=== PATIENT | male | born 1980 | race Hispanic/Latino ===

== ENCOUNTER 2018-09-15 08:33 | Emergency (ER) | payer SELFPAY ==
[~2018-09-15] VITALS: Ht 182.9 cm; Wt 111.1 kg
[2018-09-15] MEDS ORDERED: DIAZEPAM 5 MG TAB PO ONE (09:00)
[2018-09-15] MEDS ORDERED: HYDROCODONE/APAP 5MG-325MG TAB PO ONE (09:00)
[2018-09-15] MEDS ORDERED: KETOROLAC TROMETHAMINE 60 MG/2 ML VIAL IM ONE (09:00)
[2018-09-15 09:45] VITALS: BP 134/93
== END 2018-09-15 09:52 | disposition home or self-care (01) ==
LOC: ER 08:33
DX: M54.5 Low back pain (principal); S39.012A Strain of muscle, fascia and tendon of lower back, initial encounter; X50.1XXA Overexertion from prolonged static or awkward postures, initial encounter
CPT/HCPCS: 99283; J1885

== ENCOUNTER 2019-07-12 12:11 | Emergency (ER) | payer SELFPAY ==
[~2019-07-12] VITALS: Ht 182.9 cm; Wt 111.1 kg
[2019-07-12] MEDS ORDERED: ORPHENADRINE CITRATE 30 MG/ML VIAL IM ONE (13:00)
[2019-07-12] MEDS ORDERED: PREDNISONE 20 MG TAB PO ONE (13:30)
[2019-07-12] MEDS ORDERED: HYDROCODONE/APAP 10MG-325MG TAB PO ONE (13:30)
== END 2019-07-12 14:27 | disposition home or self-care (01) ==
LOC: ER 12:11
DX: M54.32 Sciatica, left side (principal)
CPT/HCPCS: 99282; J2360; J7512

== ENCOUNTER 2020-12-26 17:07 | Inpatient (IN) | payer SELFPAY ==
[~2020-12-26] VITALS: Ht 185.4 cm; Wt 108.4 kg
[2020-12-26 18:19] LABS: BASOPHILS # (AUTO) 0.1 (0.0-0.1); BASOPHILS % 0.3 % (0.0-1.0); EOSINOPHILS % 0.3 % (0.0-6.0); HEMATOCRIT 40.6 % (38.2-49.6); LYMPHOCYTES # (AUTO) 2.3 (1.0-3.2); LYMPHOCYTES % 14.5 % (18.0-39.1); MEAN CORPUSCULAR HEMOGLOBIN 29.7 pg (28-32); MEAN CORPUSCULAR VOLUME 92.7 fL (81-99); MONOCYTES # (AUTO) 0.6 (0.2-0.8); NEUTROPHILS # (AUTO) 12.5 (2.1-6.9); NEUTROPHILS % 80.3 % (38.7-80.0); PLATELET COUNT 260 x10e3/uL (140-360); RED BLOOD COUNT 4.38 x10e6/uL (4.3-5.7); RED CELL DISTRIBUTION WIDTH 12.2 % (11.7-14.4)
[2020-12-26 18:40] LABS: ALANINE AMINOTRANSFERASE 34 IU/L (0-55); ALBUMIN 3.8 g/dL (3.5-5.0); ALBUMIN/GLOBULIN RATIO 0.9 (0.8-2.0); ALKALINE PHOSPHATASE 75 IU/L (40-150); ANION GAP 13.3 mmol/L (8-16); BLOOD UREA NITROGEN 12 mg/dL (7-26); BUN/CREATININE RATIO 11 (6-25); CALCIUM 9.1 mg/dL (8.4-10.2); CARBON DIOXIDE 28 mmol/L (22-29); CHLORIDE 101 mmol/L (98-107); CREATINE KINASE 121 IU/L (30-200); CREATININE, SERUM 1.14 mg/dL (0.72-1.25); EST GLOMERULAR FILTRATION RATE 70 ML/MIN (60-); GLUCOSE 189 mg/dL (74-118); POTASSIUM 3.3 mmol/L (3.5-5.1); SODIUM 139 mmol/L (136-145)
[2020-12-26] MEDS ORDERED: SODIUM CHLORIDE 0.9% 1000ML 1,000 ML IV STA (19:02)
[2020-12-26] MEDS ORDERED: KETOROLAC TROMETHAMINE 30 MG/ML VIAL IV STA (19:02)
[2020-12-26] MEDS ORDERED: SODIUM CHLORIDE 0.9% 50ML 50 ML ONE (19:26)
[2020-12-26] MEDS ORDERED: IOPAMIDOL 370 MG/ML 200 ML INFUS..BTL INJ ONE (19:27)
[2020-12-26] MEDS ORDERED: MORPHINE SULFATE INJ 2 MG/ML SYR IV PRN (21:45)
[2020-12-26] MEDS ORDERED: PIPERACILLIN/TAZOBACTAM 3.375 GM in SODIUM CHLORIDE 0.9% 50ML 50 ML IV ONE (21:45)
[2020-12-26] MEDS ORDERED: ONDANSETRON HCL INJ 2MG/ML 2ML 2 MG/ML VIAL IV PRN (21:45)
[2020-12-26 22:14] LABS: AMPHETAMINES SCREEN,URINE NEGATIVE (NEGATIVE); BENZODIAZEPINES SCREEN,URINE NEGATIVE (NEGATIVE); CLARITY,URINE CLEAR (CLEAR); COLOR,URINE YELLOW (YELLOW); KETONES,URINE NEGATIVE (NEGATIVE); LEUKOCYTE ESTERASE ,URINE NEGATIVE (NEGATIVE); NITRITE,URINE NEGATIVE (NEGATIVE); PHENCYCLIDINE SCREEN,URINE NEGATIVE (NEGATIVE); PROTEIN,URINE DIPSTICK NEGATIVE (NEGATIVE)
[2020-12-26 22:22] LABS: BACTERIA,URINE RARE /HPF; EPITHELIAL CELLS,URINE FEW /LPF; RBC,URINE 0-5 /HPF (0-5); WBC,URINE (MAN) 0-5 /HPF (0-5)
[2020-12-26] MEDS: D5.45%NS/KCL 20MEQ 1,000 ML IV SCH (22:41)
[2020-12-26] MEDS: PIPERACILLIN/TAZOBACTAM 3.375 GM in SODIUM CHLORIDE 0.9% 50ML 50 ML IV SCH (22:42)
[2020-12-26 23:29] VITALS: BP 122/75
[2020-12-27] MEDS ORDERED: LIDOCAINE 4% PATCH TP PRN (01:00)
[2020-12-27] MEDS ORDERED: HYDRALAZINE HCL 20 MG/ML VIAL IV PRN (01:00)
[2020-12-27] MEDS ORDERED: DIPHENHYDRAMINE HCL 25 MG CAP PO PRN (01:00)
[2020-12-27] MEDS ORDERED: ALBUTEROL/IPRATROPIUM 3 ML NEB NEB PRN (01:00)
[2020-12-27] MEDS ORDERED: DEXTROSE 50% SYRINGE 50 ML IV PRN (01:00)
[2020-12-27] MEDS ORDERED: MELATONIN 5 MG TABLET PO PRN (01:00)
[2020-12-27] MEDS ORDERED: DOCUSATE SODIUM 100 MG CAP PO PRN (01:00)
[2020-12-27] MEDS ORDERED: ACETAMINOPHEN 325 MG TAB PO PRN (01:00)
[2020-12-27] MEDS ORDERED: POTASSIUM CHLORIDE 20 MEQ TAB CR PO PRN (01:00)
[2020-12-27] MEDS ORDERED: SIMETHICONE 80 MG CHEW PO PRN (01:00)
[2020-12-27] MEDS ORDERED: ONDANSETRON HCL INJ 2MG/ML 2ML 2 MG/ML VIAL IV PRN (01:00)
[2020-12-27] MEDS ORDERED: BENZONATATE 100 MG CAP PO PRN (01:00)
[2020-12-27] MEDS: PANTOPRAZOLE SOD 40 MG TABEC PO SCH (05:13)
[2020-12-27 05:45] VITALS: BP 119/71
[2020-12-27] MEDS: PIPERACILLIN/TAZOBACTAM 3.375 GM in SODIUM CHLORIDE 0.9% 50ML 50 ML IV SCH ×3 (05:46→20:42)
[2020-12-27] MEDS: D5.45%NS/KCL 20MEQ 1,000 ML IV SCH ×3 (05:51→20:42)
[2020-12-27 06:58] LABS: BASOPHILS # (AUTO) 0.1 (0.0-0.1); BASOPHILS % 0.4 % (0.0-1.0); EOSINOPHILS # (AUTO) 0.1 (0.0-0.4); HEMATOCRIT 37.6 % (38.2-49.6); HEMOGLOBIN 12.4 g/dL (14.0-18.0); LYMPHOCYTES # (AUTO) 2.4 (1.0-3.2); MEAN CORPUSCULAR HEMOGLOBIN 30.1 pg (28-32); MEAN CORPUSCULAR VOLUME 91.3 fL (81-99); MONOCYTES % 7.5 % (4.4-11.3); NEUTROPHILS # (AUTO) 9.2 (2.1-6.9); NEUTROPHILS % 71.6 % (38.7-80.0); PLATELET COUNT 228 x10e3/uL (140-360); RED BLOOD COUNT 4.12 x10e6/uL (4.3-5.7); RED CELL DISTRIBUTION WIDTH 12.2 % (11.7-14.4)
[2020-12-27 07:27] LABS: ALBUMIN 3.1 g/dL (3.5-5.0); ALBUMIN/GLOBULIN RATIO 0.9 (0.8-2.0); ANION GAP 11.7 mmol/L (8-16); CALCIUM 8.6 mg/dL (8.4-10.2); CREATININE, SERUM 0.99 mg/dL (0.72-1.25); POTASSIUM 3.7 mmol/L (3.5-5.1)
[2020-12-27 07:54] VITALS: BP 101/65
[2020-12-27 08:00] VITALS: BP 101/65
[2020-12-27 12:09] VITALS: BP 123/79
[2020-12-27 17:18] VITALS: BP 120/72
[2020-12-27 19:18] VITALS: BP 138/70
[2020-12-28 00:59] VITALS: BP 113/66
[2020-12-28] MEDS: METRONIDAZOLE 500MG/NS 100ML 100 ML IV SCH ×5 (01:38→23:29)
[2020-12-28 04:12] VITALS: BP 100/58
[2020-12-28] MEDS: PIPERACILLIN/TAZOBACTAM 3.375 GM in SODIUM CHLORIDE 0.9% 50ML 50 ML IV SCH ×4 (04:22→21:22)
[2020-12-28 04:55] LABS: BASOPHILS # (AUTO) 0.1 (0.0-0.1); BASOPHILS % 0.5 % (0.0-1.0); EOSINOPHILS # (AUTO) 0.3 (0.0-0.4); EOSINOPHILS % 2.7 % (0.0-6.0); HEMATOCRIT 39.3 % (38.2-49.6); HEMOGLOBIN 12.7 g/dL (14.0-18.0); LYMPHOCYTES # (AUTO) 3.2 (1.0-3.2); LYMPHOCYTES % 31.3 % (18.0-39.1); MEAN CORPUSCULAR HEMOGLOBIN 29.8 pg (28-32); MEAN CORPUSCULAR HGB CONC 32.3 g/dL (31-35); MEAN CORPUSCULAR VOLUME 92.3 fL (81-99); MONOCYTES # (AUTO) 0.7 (0.2-0.8); MONOCYTES % 6.7 % (4.4-11.3); NEUTROPHILS # (AUTO) 5.9 (2.1-6.9); NEUTROPHILS % 58.3 % (38.7-80.0); PLATELET COUNT 254 x10e3/uL (140-360); RED BLOOD COUNT 4.26 x10e6/uL (4.3-5.7); RED CELL DISTRIBUTION WIDTH 12.1 % (11.7-14.4)
[2020-12-28] MEDS: PANTOPRAZOLE SOD 40 MG TABEC PO SCH (05:26)
[2020-12-28] MEDS: D5.45%NS/KCL 20MEQ 1,000 ML IV SCH (05:26)
[2020-12-28 08:00] VITALS: BP 128/55
[2020-12-28] MEDS ORDERED: SODIUM CHLORIDE 0.9% 250ML 250 ML ONE (09:02)
[2020-12-28 16:07] VITALS: BP 106/62
[2020-12-28 20:18] VITALS: BP 131/81
[2020-12-28 21:00] VITALS: BP 131/81
[2020-12-29] VITALS (8 sets, daily range): BP systolic 88–145; BP diastolic 58–88
[2020-12-29] MEDS: PIPERACILLIN/TAZOBACTAM 3.375 GM in SODIUM CHLORIDE 0.9% 50ML 50 ML IV SCH ×4 (02:21→20:35)
[2020-12-29] MEDS: PANTOPRAZOLE SOD 40 MG TABEC PO SCH ×2 (05:10→08:54)
[2020-12-29] MEDS: METRONIDAZOLE 500MG/NS 100ML 100 ML IV SCH ×3 (05:10→17:48)
[2020-12-29] MEDS ORDERED: MORPHINE SULFATE INJ 4 MG/ML INJ 1ML IV PRN (13:15)
[2020-12-29] MEDS ORDERED: ENOXAPARIN SOD INJ 40 MG/0.4 ML SYR SC SCH (17:00)
[2020-12-29] MEDS ORDERED: SODIUM CHLORIDE 0.9% 50ML 50 ML ONE (20:43)
[2020-12-30] VITALS: BP 123/79
[2020-12-30] MEDS: METRONIDAZOLE 500MG/NS 100ML 100 ML IV SCH ×3 (00:15→11:58)
[2020-12-30 04:00] VITALS: BP 112/67
[2020-12-30] MEDS: PIPERACILLIN/TAZOBACTAM 3.375 GM in SODIUM CHLORIDE 0.9% 50ML 50 ML IV SCH ×3 (04:20→14:00)
[2020-12-30 05:45] LABS: BASOPHILS % 0.5 % (0.0-1.0); EOSINOPHILS # (AUTO) 0.2 (0.0-0.4); EOSINOPHILS % 2.7 % (0.0-6.0); HEMATOCRIT 41.9 % (38.2-49.6); HEMOGLOBIN 13.6 g/dL (14.0-18.0); LYMPHOCYTES # (AUTO) 3.4 (1.0-3.2); LYMPHOCYTES % 39.5 % (18.0-39.1); MEAN CORPUSCULAR HEMOGLOBIN 29.1 pg (28-32); MEAN CORPUSCULAR HGB CONC 32.5 g/dL (31-35); MEAN CORPUSCULAR VOLUME 89.5 fL (81-99); MONOCYTES # (AUTO) 0.5 (0.2-0.8); MONOCYTES % 6.3 % (4.4-11.3); NEUTROPHILS # (AUTO) 4.3 (2.1-6.9); NEUTROPHILS % 50.3 % (38.7-80.0); PLATELET COUNT 284 x10e3/uL (140-360); RED BLOOD COUNT 4.68 x10e6/uL (4.3-5.7); RED CELL DISTRIBUTION WIDTH 11.9 % (11.7-14.4)
[2020-12-30 06:04] LABS: ANION GAP 13.5 mmol/L (8-16); CALCIUM 9.2 mg/dL (8.4-10.2); CREATININE, SERUM 1.32 mg/dL (0.72-1.25); POTASSIUM 4.5 mmol/L (3.5-5.1)
[2020-12-30 08:45] VITALS: BP 106/75
[2020-12-30 08:54] VITALS: BP 106/75
[2020-12-30 11:50] VITALS: BP 119/72
[2020-12-30] MEDS ORDERED: CIPRO500 MG PO (13:43)
[2020-12-30] MEDS ORDERED: FLAGYL500 MG PO (13:45)
== END 2020-12-30 15:07 | disposition home or self-care (01) | DRG 392 ==
LOC: ER 17:17 → ERHOLD 22:01 → MED/SURG2 23:25
PROVIDERS: ADMIT Internal Medicine; ATTEND Internal Medicine
DX: K57.20 Diverticulitis of large intestine with perforation and abscess without bleeding (principal); Z20.822 Contact with and (suspected) exposure to COVID-19; G89.29 Other chronic pain
CPT/HCPCS: 36415; 74177; 80048; 80053; 80307; 81001; 82550; 82553; 83605; 83690; 84484; 85025; 87040; 99284; J1650; J1885; J2543; J7030; J7050; Q9967; U0002

== ENCOUNTER 2024-11-21 15:55 | Emergency (ER) | payer SELFPAY ==
[~2024-11-21] VITALS: Ht 175.3 cm; Wt 117.9 kg
[~2024-11-21 15:55] MED LIST: BENZONATATE100 MG PO; CIPRO500 MG PO; FLAGYL500 MG PO
[2024-11-21 16:29] VITALS: PULSE 70; RESP 16; TEMP 99
[2024-11-21] MEDS ORDERED: DOXYCYCLINE HY100 MG PO (18:26)
[2024-11-21 18:42] VITALS: BP 124/81; PULSE 66; RESP 16; TEMP 98.6; O2SAT 98
== END 2024-11-21 18:43 | disposition home or self-care (01) ==
LOC: ER 18:08
DX: L73.8 Other specified follicular disorders (principal)
CPT/HCPCS: 99283